=== PATIENT | male | born 1980 | race Caucasian/White ===

== ENCOUNTER 2016-05-09 02:08 | Emergency (ER) | payer BC ==
[~2016-05-09] VITALS: Ht 180.3 cm; Wt 97.1 kg
[2016-05-09 02:11] VITALS: TEMP 36.9; Ht 180.3 cm; Wt 97.1 kg
[2016-05-09] MEDS ORDERED: SODIUM CHLORIDE 0.9% 1000ML 1,000 ML IV STA (02:25)
[2016-05-09 02:44] LABS: BASO % 0.1 %; BASO ABS # 0.01 K/uL (0-0.2); COMPLETE YES; EOS % 0.3 %; IG% 0.3 %; LYMPH % 21.4 %; LYMPH ABS # 1.56 K/uL (1.2-3.4); MEAN CELL VOLUME 84.9 fL (80-100); MEAN CORPUSCULAR HEMOGLOBIN 31.6 pg (25-34); MEAN CORPUSCULAR HGB CONC 37.3 g/dl (32-36); MONO % 7.8 %; NEUT % 70.1 %; PLATELET COUNT 289 K/uL (130-400); RED BLOOD COUNT 4.71 M/uL (4.7-6.1); WHITE BLOOD COUNT 7.28 K/uL (4.8-10.8)
[2016-05-09] MEDS ORDERED: MoRPHine SULFATE 4 MG/ML 1 ML CARP\\VIAL IV STA ×2 (02:45→03:23)
[2016-05-09] MEDS ORDERED: ONDANSETRON INJ 2 MG/ML 2 ML VIAL IV STA (02:45)
[2016-05-09] MEDS ORDERED: KETOROLAC TROMETHAMINE 30 MG/ML VIAL IV STA (02:45)
--- NOTE | 2016-05-09 02:48 | EMERGENCY ROOM VISIT NOTE ---
History First contact with patient: 02:14 Chief Complaint: ABDOMINAL PAIN Stated Complaint: SHARP PAIN ON RIGHT SIDE BELOW RIBS, NAUSEA Nursing Triage Summary: Patient reports right sided abdominal pain that began approximately 3 hours ago. The pain is sharp and constant. Patient reports associated nausea and vomiting. Patient states that the pain is starting to radiate into his back as well. Patient reports hx of kidney stones and reports that this feels similar to previoius kidney stones. History of Present Illness The patient is a 35 year old male who presents to the Emergency Department by private vehicle for evaluation of his RIGHT lower quadrant abdominal pain and flank pain. He reports that his symptoms started approximately 3 hours prior to arrival. He reports waxing waning pain in the affected areas. He denies any radiation into his groin or testicle. The patient rates his current discomfort as an 8/10. He denies any fevers, chills, chest pain, palpitations, short of breath, dizziness, lightheadedness, urinary frequency, hematuria, or dysuria. He does report a significant past medical history of kidney stones and reports that this feels somewhat similar. He denies a previous abdominal surgeries. The patient does report associated nausea and vomiting with pain. Review of Systems A complete 10-point Review of Systems was discussed with the patient, with pertinent positives and negatives listed in the History of Present Illness. All remaining Review of Systems questions can be considered negative unless otherwise specified. Social History Smoking Status: Never Smoker Smokeless Tobacco Use: No Drug Use: none Current/Historical Medications Scheduled PRN Oxycodone Ir (Roxicodone Ir), 1-2 TAB PO Q4H PRN for Pain Allergies Coded Allergies: No Known Allergies (Unverified , 05/09/16) Physical Exam Vital Signs Date Time Temp Pulse Resp B/P Pulse Ox O2 Delivery O2 Flow Rate FiO2 05/09/16 04:14 90 20 125/85 96 05/09/16 02:11 36.9 95 16 148/98 95 Room Air Pain Rating (0-10): 8 Physical Exam VITAL SIGNS - Vital signs and nursing notes were reviewed. GENERAL - 35-year-old male appearing his stated age who is in no acute distress. Communicates well with provider and answers questions appropriately. LUNGS - Chest wall symmetric without accessory muscle use, intercostals retractions, or central cyanosis. Normal vesicular breath sounds CTA B/L. No wheezes, rales, or rhonchi appreciated. CARDIAC - RRR with S1/S2. No murmur, rubs, or gallops appreciated. ABDOMEN - Abdominal contour obese and without pulsations or visible masses. BS normoactive all four quadrants. No tenderness to palpation appreciated throughout. No guarding. No Rebound Tenderness. Negative Rovsing's. Negative Lovell's. No palpable masses, hepatosplenomegaly, or ascites noted. No CVA tenderness to percussion. PSYCH - A&Ox3 and cooperates fully with examiner. Pt is very pleasant and interacts well with examiner. Medical Decision & Procedures ER Provider Diagnostic Interpretation: Radiological imaging and reports were reviewed by myself. Radiologist's Interpretation per [facility] as follows: CT ABDOMEN & PELVIS: 7 mm calculus at the right ureteropelvic junction causes mild hydronephrosis. 5 mm mid zone right intrarenal stone. Hepatic steatosis. Normal appendix. Small fatty right inguinal hernia. Disc degeneration and Schmorl's node deformities at multiple thoracolumbar levels are advanced for age. Resulting lumbar kyphosis at L1-2. Suspect Scheuermann's disease. Laboratory Results 05/09/16 02:30 Red Blood Count 4.71, Mean Corpuscular Volume 84.9, Mean Corpuscular Hemoglobin 31.6, Mean Corpuscular Hemoglobin Concent 37.3, Mean Platelet Volume 9.0, Neutrophils (%) (Auto) 70.1, Lymphocytes (%) (Auto) 21.4, Monocytes (%) (Auto) 7.8, Eosinophils (%) (Auto) 0.3, Basophils (%) (Auto) 0.1, Neutrophils # (Auto) 5.10, Lymphocytes # (Auto) 1.56, Monocytes # (Auto) 0.57, Eosinophils # (Auto) 0.02, Basophils # (Auto) 0.01 05/09/16 02:30 Test 05/09/16 02:30 White Blood Count 7.28 K/uL (4.8-10.8) Red Blood Count 4.71 M/uL (4.7-6.1) Hemoglobin 14.9 g/dL (14.0-18.0) Hematocrit 40.0 % (42-52) Mean Corpuscular Volume 84.9 fL (80-100) Mean Corpuscular Hemoglobin 31.6 pg (25-34) Mean Corpuscular Hemoglobin Concent 37.3 g/dl (32-36) Platelet Count 289 K/uL (130-400) Mean Platelet Volume 9.0 fL (7.4-10.4) Neutrophils (%) (Auto) 70.1 % Lymphocytes (%) (Auto) 21.4 % Monocytes (%) (Auto) 7.8 % Eosinophils (%) (Auto) 0.3 % Basophils (%) (Auto) 0.1 % Neutrophils # (Auto) 5.10 K/uL (1.4-6.5) Lymphocytes # (Auto) 1.56 K/uL (1.2-3.4) Monocytes # (Auto) 0.57 K/uL (0.11-0.59) Eosinophils # (Auto) 0.02 K/uL (0-0.5) Basophils # (Auto) 0.01 K/uL (0-0.2) RDW Standard Deviation 39.6 fL (36.4-46.3) RDW Coefficient of Variation 12.8 % (11.5-14.5) Immature Granulocyte % (Auto) 0.3 % Immature Granulocyte # (Auto) 0.02 K/uL (0.00-0.02) Urine Color YELLOW Urine Appearance CLEAR (CLEAR) Urine pH 5.5 (4.5-7.5) Urine Specific [place] 1.011 (1.000-1.030) Urine Protein NEG (NEG) Urine Glucose (UA) NEG (NEG) Urine Ketones NEG (NEG) Urine Occult Blood 2+ (NEG) Urine Nitrite NEG (NEG) Urine Bilirubin NEG (NEG) Urine Urobilinogen NEG (NEG) Urine Leukocyte Esterase NEG (NEG) Urine WBC (Auto) 1-5 /hpf (0-5) Urine RBC (Auto) 5-10 /hpf (0-4) Urine Hyaline Casts (Auto) 1-5 /lpf (0-5) Urine Epithelial Cells (Auto) 0-5 /lpf (0-5) Urine Bacteria (Auto) NEG (NEG) Anion Gap 9.0 mmol/L (3-11) Est Creatinine Clear Calc Drug Dose 124.8 ml/min Estimated GFR () 114.1 Estimated GFR (Non- 98.5 BUN/Creatinine Ratio 11.1 (10-20) Calcium Level 8.9 mg/dl (8.5-10.1) Magnesium Level 1.8 mg/dl (1.8-2.4) Total Bilirubin 1.5 mg/dl (0.2-1) Aspartate Amino Transf (AST/SGOT) 34 U/L (15-37) Alanine Aminotransferase (ALT/SGPT) 73 U/L (12-78) Alkaline Phosphatase 70 U/L (45-117) Total Protein 8.1 gm/dl (6.4-8.2) Albumin 4.4 gm/dl (3.4-5.0) Globulin 3.7 gm/dl (2.5-4.0) Albumin/Globulin Ratio 1.2 (0.9-2) Lipase 155 U/L (73-393) Medications Administered Medications (Trade) Dose Ordered Sig/Huyen Route Start Time Stop Time Status Last Admin Dose Admin Sodium Chloride (Nss 1000ml) 1,000 ml @ 999 mls/hr Q1H1M STAT IV 05/09/16 02:25 05/09/16 03:25 DC 05/09/16 02:40 999 MLS/HR Morphine Sulfate (MoRPHine SULFATE INJ) 4 mg NOW STAT IV 05/09/16 02:45 05/09/16 02:47 DC 05/09/16 03:08 4 MG Ondansetron HCl (Zofran Inj) 4 mg NOW STAT IV 05/09/16 02:45 05/09/16 02:47 DC 05/09/16 03:07 4 MG Ketorolac Tromethamine (Toradol Inj) 30 mg NOW STAT IV 05/09/16 02:45 05/09/16 02:47 DC 05/09/16 03:07 30 MG Morphine Sulfate (MoRPHine SULFATE INJ) 4 mg NOW STAT IV 05/09/16 03:23 05/09/16 03:24 DC 05/09/16 03:33 4 MG Oxycodone HCl (Roxicodone Immediate Rel 5MG Home Pack) 1 homepack UD ONCE PO 05/09/16 04:15 05/09/16 04:16 DC 05/09/16 04:13 1 HOMEPACK ED Course Patient was seen and evaluate by myself. Labs were drawn, saline lock in place. The patient was hydrated with 1000 mL normal saline bolus. The patient received 4 mg morphine, 4 mg Zofran, and 30 g Toradol intravenously for pain. CT of the abdomen and pelvis without IV contrast was ordered. Laboratory results demonstrate no acute leukocytosis, worrisome anemia, or bandemia. The patient has no significant electrolyte abnormalities. Patient was reevaluated after CT scanning educated on today's labs and imaging studies. He complains of persistent pain. He was treated with an additional formerly grams morphine for pain. The patient was reevaluated and reports feeling no pain at this time. He was offered admission for pain control which she declines. He would rather be discharged home which she has had success with in the past. Patient was provided OxyIR for break through pain at home. He will follow-up with urology from today's visit. He will return for any changing or worsening symptoms. Patient discharged home afebrile and in good condition. Medical Decision Given the patient's presentation and exam findings, I did elect to perform the above-mentioned workup. The patient presents today with RIGHT-sided flank pain. He has no fever leukocytosis. He has no abdominal tenderness to palpation. CT consistent with 7 mm proximal stone. The patient's pain was adequately controlled the emergency department. He declines offer for admission for pain control. He'll follow-up with urology in the outpatient setting. He will be provided pain medication for breakthrough pain at home. He was educated on worrisome symptoms for return visit to the emergency department. Patient discharged home afebrile and in good condition. In the evaluation and treatment of this patient, the following differential diagnoses were considered: Appendicitis, Diverticulitis, Diverticulosis, Colitis , Ischemic Colitis, Inflammatory Bowel Disease, Irritable Bowel Disease, Testicular Torsion, Kidney Stone, Pyelonephritis, Hydronephrosis, Cholecystitis , Ascending Cholangitis, Choledocholithiasis, GERD. Impression Primary Impression: Ureterolithiasis Departure Information Dispostion Home / Self-Care Condition GOOD Prescriptions Oxycodone Ir (Roxicodone Ir) 5 Mg Tab 1-2 TAB PO Q4H Y for Pain, #20 TAB For Initial Treatment Prov: Amando Rudd PA-C 05/09/16 Referrals No Doctor, Assigned (PCP) Wilfrido Keller M.D. Patient Instructions Kidney Stones - [facility], [facility] Additional Instructions You have been treated in the Emergency Department today for a Kidney Stone ( Nephrolithiasis). You have received pain medicine in the emergency department which impairs your ability to operate a vehicle. It is illegal for you to drive after receiving these medicines. You have been prescribed OxyIR to be used for pain control. This is a narcotic medication. You cannot drive or consume alcohol while on this medicine. This medicine should only be used for pain that cannot be controlled with over-the- counter pain medicines. For pain control, you can use the following [id number] medicines (if >12 yo): - Regular strength (325mg/tab) Tylenol (acetaminophen) 2 tabs every 4-6 hours as needed. Do not exceed 12 tablets in a 24 hour period. Avoid taking more than 4 grams (4000 mg) of Tylenol per day. This includes any other sources of acetaminophen you may take on a regular basis. - Regular strength (200 mg/tab) Advil (ibuprofen) 1-2 tabs every 4-6 hours as needed. Do not exceed a dose of 3200 mg per day. You have been provided a strainer and specimen collection cup. You should strain your urine to collect any passed stones. Your stones can be placed into the specimen cup and taken to your Urologist for further evaluation. You have been provided the contact information for the on-call Urologist. You should contact the Urologist's office tomorrow to establish a follow-up appointment from today's Emergency Department visit. Return to the Emergency Department if your symptoms persist despite the treatment plan outlined above or if you develop the following symptoms: intractable pain, fever, chills, or large amounts of blood in your urine.
[2016-05-09 02:49] LABS: URINE APPEARANCE CLEAR (CLEAR); URINE BILIRUBIN NEG (NEG); URINE COLOR YELLOW; URINE EPITHELIAL CELL AUTO 0-5 /lpf (0-5); URINE NITRITE NEG (NEG); URINE PH 5.5 (4.5-7.5); URINE SPECIFIC GRAVITY 1.011 (1.000-1.030); UROBILINOGEN NEG (NEG); ZZUR CULT IF INDIC CLEAN CATCH NO
[2016-05-09 02:58] LABS: MANUAL MICROSCOPIC REQUIRED? NO; REVIEW REQ? NO
[2016-05-09 03:04] LABS: BUN/CREATININE RATIO 11.1 (10-20); CALCIUM 8.9 mg/dl (8.5-10.1); MAGNESIUM 1.8 mg/dl (1.8-2.4); POTASSIUM 3.8 mmol/L (3.5-5.1)
[2016-05-09 03:06] LABS: ALB/GLOB RATIO 1.2 (0.9-2)
[2016-05-09] MEDS ORDERED: OXYC1TAB3 PO (04:03)
[2016-05-09 04:14] VITALS: BP 125/85; PULSE 90; O2SAT 96
[2016-05-09] MEDS ORDERED: OXYCODONE IR HOME PACK PO ONE (04:15)
--- NOTE | 2016-05-09 07:46 | DIAGNOSTIC IMAGING REPORT ---
CT SCAN OF THE ABDOMEN AND PELVIS WITHOUT IV CONTRAST CLINICAL HISTORY: Right flank pain. COMPARISON STUDY: No priors. TECHNIQUE: CT scan of the abdomen and pelvis is performed from the lung bases to the proximal femora. Images are reviewed in the axial, sagittal, and coronal planes. IV contrast was not administered for this examination as per the referring clinician. Automated dose control exposure was utilized. CT DOSE: 1258.03 mGy.cm FINDINGS: Lung bases: The heart is normal in size and without pericardial effusion. A punctate calcified granuloma is noted at the right lung base. The lung bases are otherwise clear noting dependent atelectasis. Liver: The unenhanced liver is enlarged, measuring 21.5 cm in length. The liver demonstrates diffusely diminished attenuation consistent with hepatic steatosis. Fatty sparing is seen adjacent to gallbladder fossa. There is no intrahepatic biliary ductal dilatation. Gallbladder: Unremarkable. Spleen: Normal in size and attenuation. Pancreas: Unremarkable. Adrenal glands: Unremarkable. Kidneys: The unenhanced kidneys are normal in size. There is a 9 mm obstructing calculus in the proximal right ureter just below the ureteropelvic junction seen on axial image #205. This causes moderate right-sided hydronephrosis and is located at the level of L1-L2. There is associated right-sided perinephric stranding. There are at least 2 additional nonobstructing right renal calculi measuring up to 6 mm. No left renal calculi are identified and there is no left-sided hydronephrosis. There is no evidence of contour deforming renal mass lesion. Abdominal vasculature: The abdominal aorta is normal in course and caliber. Bowel: The small bowel and colon are normal in course and caliber. The appendix is well-visualized and normal. Peritoneum: There is no intraperitoneal free air or abdominal ascites. There is a small fat-containing umbilical hernia. Lymphadenopathy: None. Pelvic viscera: The bladder, prostate, and seminal vesicles are normal as visualized. There is a small fat-containing right inguinal hernia. Skeletal structures: No lytic or blastic lesions are seen. There is straightening of the lumbar lordosis with mild reversal centered at L1-L2. Multiple Schmorl's nodes are noted. There is a limbus vertebra at L4. IMPRESSION: 1. There is a 9 mm obstructing calculus in the proximal right ureter just below the ureteropelvic junction. 2. At least 2 additional nonobstructing calculi are seen in the right kidney. 3. No left renal calculi are identified. 4. Hepatomegaly and hepatic steatosis. Electronically signed by: Max Merchant M.D. 05/09/2016 7:45 AM Dictated Date/Time: 05/09/2016 7:38 AM
[2016-05-14] MEDS ORDERED: TAMS0.4C38 PO (14:00)
[2016-05-15] MEDS ORDERED: OXYC-57 PO (10:34)
== END 2016-05-09 04:16 | disposition home or self-care (01) ==
LOC: C.EDB 02:10
DX: N20.1 Calculus of ureter (principal)

== ENCOUNTER → 2016-05-12 | Outpatient (CLI) | payer BC ==
[~2016-05-12] MED LIST: OXYC-57 PO; OXYC1TAB3 PO; TAMS0.4C38 PO
== END | disposition home or self-care (01) ==
LOC: C.LABSPEC 16:54
PROVIDERS: ATTEND Urology
DX: N20.0 Calculus of kidney (principal)

== ENCOUNTER → 2016-05-14 | Outpatient (CLI) | payer BC ==
--- NOTE | 2016-05-14 18:18 | DIAGNOSTIC IMAGING REPORT ---
KUB CLINICAL HISTORY: Nephrolithiasis RIGHT FLANK PAIN COMPARISON STUDY: CT scan dated 05/09/2016 FINDINGS: There is no pathologic bowel dilatation. There is an 8 mm proximal right ureteral calculus. As a 2.5 mm calculus within the midpole the right kidney. No right renal calculi are visualized. IMPRESSION: 1. 8 mm proximal right ureteral calculus 2. 2.5 mm mid pole right renal calculus. Electronically signed by: Boris Landeros M.D. 05/14/2016 6:17 PM Dictated Date/Time: 05/14/2016 6:15 PM
== END | disposition home or self-care (01) ==
LOC: C.RAD 17:56
PROVIDERS: ATTEND Urology
DX: N20.0 Calculus of kidney (principal)

== ENCOUNTER → 2016-05-15 | Day surgery (SDC) | payer BC ==
[2016-05-14 14:00] VITALS: Ht 180.3 cm; Wt 90.9 kg
[~2016-05-15] VITALS: Ht 180.3 cm; Wt 90.9 kg
[~2016-05-15] MED LIST changes: +ATROPINE SULFATE 0.1 MG/ML 5ML SYR IV PRN; +CIPROFLOXACIN / D5W 400 MG IV SCH; +DEXAMETHASONE SOD INJ 4 MG/ML VIAL ONE; +EpHEDrine SULFATE INJ 50 MG/ML AMP IV PRN; +FENTANYL CITRATE INJ 50 MCG/1 ML 2 ML VIAL IV PRN; +FENTANYL CITRATE INJ 50 MCG/1 ML 2 ML VIAL ONE; +LACTATED RINGER'S 1000ML 1,000 ML IV SCH; +LIDOCAINE HCL 2% 2 ML VIAL (20MG/ML) ONE; +MIDAZOLAM HCL 1 MG/ML 2ML VIAL ONE; +ONDANSETRON INJ 2 MG/ML 2 ML VIAL ONE; +OXYCODONE/ACETAMINOPHEN 5-325 TAB PO PRN; +PROPOFOL IV EMULSION 10 MG/ML 20 ML VIAL IV ONE
--- NOTE | 2016-05-15 09:45 | History & Physical Bridge Note ---
H&P Re-Evaluation Bridge Note: I have examined the patient, reviewed the History & Physical and in the interval since the performance of the History & Physical I have noted the following changes of clinical significance: No changes noted
--- NOTE | 2016-05-15 10:33 | [facility] Post Operative Brief Note ---
Immediate Operative Summary Operative Date May 15, 2016. Pre-Operative Diagnosis right ureteral stone Post-Operative Diagnosis same Procedure(s) Performed right eswl Surgeon mckenzie Cam Specialist Surgeon(s) none Estimated Blood Loss none Findings right upj stone Specimens none
--- NOTE | 2016-05-15 10:35 | Discharge Instructions-SurgCtr ---
Discharge Instructions Date of Service May 15, 2016. Visit Reason for Visit: Stones Discharge Discharge Diagnosis / Problem: STONE Discharge Goals Goal(s): Therapeutic intervention Activity Recommendations Activity Limitations: resume your previous activity (TAKE IT EASY TODAY) Anesthesia MEDICATIONS: Resume previous medications unless instructed otherwise by your surgeon. Resume pre-ESWL medication except for aspirin, coumadin or other blood thinners. __ Toradol 10 mg every 6 hours for initial pain. __ Lortab 5 mg 1-2 every 4 hours for pain. _X_ Percocet 5 mg 1-2 every 4 hours for pain. __ Macrodantin 50 mg x 3 a day. __ Flomax 1 tab daily one half (1/2) hour after supper. SPECIAL CARE INSTRUCTIONS: 1. Get KUB (x-ray) _X_ day before or day of office visit and bring x-ray to office __ get x-ray 2 days before and tell office you are getting x-rays when you call for the appointment. 2. Strain ALL urine. 3. Please call if you have a fever, chills, severe pain, or constant dribbling of urine. 4. Office phone number . FOLLOW UP VISIT: Please call the office to schedule a follow-up appointment at .. Post Anesthesia Instructions: If you have had General Anesthesia or IV Sedation: * Do not drive today. * Resume driving when surgeon permits. * Do not make important decisions or sign legal documents today. * Call surgeon for: 1. Temperature elevations greater than 101 degrees F. 2. Uncontrollable pain. 3. Excessive bleeding. 4. Persistent nausea and vomiting. 5. Medication intolerance (nausea, vomiting or rash). * For nausea and vomiting use only clear liquids such as: tea, soda, bouillon until nausea subsides, then gradually increase diet as tolerated. * If you have any concerns or questions, call your surgeon's office. If physician is unavailable and it is an emergency, call 911 or go to the nearest emergency room. . Diet Recommendations Home Diet: resume previous diet Procedures Procedures Performed: right eswl Pending Studies Studies pending at discharge: no Medical Emergencies . Who to Call and When: Medical Emergencies: If at any time you feel your situation is an emergency, please call 911 immediately. . Non-Emergent Contact Non-Emergency issues call your: Urologist . . "Provider Documentation" section prepared by Elmo Calloway. [facility] Monitoring Program Search Results: patient reviewed within database
[2016-05-15 11:48] VITALS: TEMP 36.8
[2016-05-15 12:10] VITALS: BP 133/89; PULSE 83; O2SAT 98
--- NOTE | 2016-05-15 12:17 | Anesthesia Progress Nt - [facility] ---
Anesthesia Post Op Note Date & Time May 15, 2016 at 12:17 Vital Signs Pain Intensity: 6.0 Vital Signs Past 12 Hours Date Time Temp Pulse Resp B/P Pulse Ox O2 Delivery O2 Flow Rate FiO2 05/15/16 12:10 83 16 133/89 98 Room Air 05/15/16 11:48 36.8 78 16 123/85 98 Room Air 05/15/16 11:40 130/84 05/15/16 11:38 82 14 05/15/16 11:38 83 14 94 05/15/16 11:37 86 19 95 05/15/16 11:37 86 19 05/15/16 11:36 80 13 05/15/16 11:36 79 13 98 05/15/16 11:35 133/88 05/15/16 11:34 37.0 97 Room Air 05/15/16 11:31 82 18 95 05/15/16 11:31 84 18 05/15/16 11:30 131/81 05/15/16 11:26 89 16 97 05/15/16 11:26 87 16 05/15/16 11:25 143/91 05/15/16 11:23 88 19 99 05/15/16 11:23 89 19 05/15/16 11:20 130/85 05/15/16 11:18 86 17 05/15/16 11:18 87 17 100 05/15/16 11:15 141/80 05/15/16 11:13 83 17 05/15/16 11:13 85 17 99 05/15/16 11:10 131/91 05/15/16 11:08 36.2 81 18 138/45 98 Room Air 05/15/16 11:08 81 138/85 98 05/15/16 11:08 81 05/15/16 08:59 36.7 92 20 156/103 96 Room Air 155/101 Notes Mental Status: alert / awake / arousable, participated in evaluation Pt Amnestic to Procedure: Yes Nausea / Vomiting: adequately controlled Pain: adequately controlled Airway Patency, RR, SpO2: stable & adequate BP & HR: stable & adequate Hydration State: stable & adequate Anesthetic Complications: no major complications apparent
--- NOTE | 2016-05-21 09:33 | OPERATIVE REPORT ---
DATE OF OPERATION: 05/15/2016 PREOPERATIVE DIAGNOSIS: Right ureteral stone. POSTOPERATIVE DIAGNOSIS: Same. PROCEDURE: Extracorporeal shockwave lithotripsy. FINDINGS: KUB showed stone right ureter bundle. SURGEON: Dr. Calloway. ANESTHESIA: General. DRAINS: None. COMPLICATIONS: None. SPECIMENS: None. INDICATIONS: The patient is a 35-year-old white male with a right ureteral stone being brought in for ESWL. DETAILS OF PROCEDURE: The patient was brought to the litho suite. He was correctly identified and the stone was visualized on his most recent x-rays. After the correct time out was performed the patient was positioned over the therapy head. An adequate level of anesthesia was administered. The extracorporeal shockwave lithotripsy treatment was then commenced. Please see the [place] [facility] Management sheet for complete treatment summary. After completion of the procedure the patient was taken to the recovery room in stable condition. I attest to the content of the Intraoperative Record and any orders documented therein. Any exceptio ns are noted below.
== END | disposition home or self-care (01) ==
LOC: X.SURG 08:33
PROVIDERS: ATTEND Urology
DX: N20.1 Calculus of ureter (principal); N13.8 Other obstructive and reflux uropathy; Z87.442 Personal history of urinary calculi

== ENCOUNTER → 2016-05-21 | Outpatient (CLI) | payer BC ==
[~2016-05-21] MED LIST changes: -ATROPINE SULFATE 0.1 MG/ML 5ML SYR IV PRN; -CIPROFLOXACIN / D5W 400 MG IV SCH; -DEXAMETHASONE SOD INJ 4 MG/ML VIAL ONE; -EpHEDrine SULFATE INJ 50 MG/ML AMP IV PRN; -FENTANYL CITRATE INJ 50 MCG/1 ML 2 ML VIAL IV PRN; -FENTANYL CITRATE INJ 50 MCG/1 ML 2 ML VIAL ONE; -LACTATED RINGER'S 1000ML 1,000 ML IV SCH; -LIDOCAINE HCL 2% 2 ML VIAL (20MG/ML) ONE; -MIDAZOLAM HCL 1 MG/ML 2ML VIAL ONE; -ONDANSETRON INJ 2 MG/ML 2 ML VIAL ONE; -OXYCODONE/ACETAMINOPHEN 5-325 TAB PO PRN; -PROPOFOL IV EMULSION 10 MG/ML 20 ML VIAL IV ONE
--- NOTE | 2016-05-21 08:50 | DIAGNOSTIC IMAGING REPORT ---
KUB CLINICAL HISTORY: N20.0 Nephrolithiasis nephrocalcinosis COMPARISON STUDY: 05/14/2016 FINDINGS: There are several mid to lower pole right renal calcifications. Calcification of the proximal right ureter as it traveled approximately 1 cm to a somewhat lower position of the proximal right ureter. IMPRESSION: Right nephrocalcinosis. Proximal right ureteral calculus 1 cm distal as compared to the position on the prior study Electronically signed by: Jeremiah Gruber M.D. 05/21/2016 8:49 AM Dictated Date/Time: 05/21/2016 8:43 AM
== END | disposition home or self-care (01) ==
LOC: C.RAD 08:18
PROVIDERS: ATTEND Urology
DX: N20.0 Calculus of kidney (principal); E83.59 Other disorders of calcium metabolism; N29 Other disorders of kidney and ureter in diseases classified elsewhere

== ENCOUNTER → 2016-06-04 | Outpatient (CLI) | payer BC ==
--- NOTE | 2016-06-04 09:03 | DIAGNOSTIC IMAGING REPORT ---
KUB CLINICAL HISTORY: Nephrolithiasis. FINDINGS: 2 AP supine abdominal radiographs are compared to study dated 05/21/2016 and correlated with abdominal CT dated 05/09/2016. There is a nonobstructed abdominal bowel gas pattern noting moderate colonic fecal retention. There are 2 calcifications projecting over the right mid ureter between the transverse processes of L3 and L4. These measure 7 mm and 4 mm. At least 2 additional nonobstructing calculi project over the right kidney and measure up to 5 mm. No calcifications are seen projecting over the left kidney or along the course of the left ureter. The bony structures appear intact. IMPRESSION: 1. There are least 2 calculi projecting over the mid right ureter measuring up to 7 mm as detailed above. These likely represent fragments from the larger left ureteral stone seen on 05/21/2016. 2. Additional nonobstructing calculi project over the right kidney. 3. No left renal calculi are seen. Electronically signed by: Max Merchant M.D. 06/04/2016 9:02 AM Dictated Date/Time: 06/04/2016 9:00 AM
== END | disposition home or self-care (01) ==
LOC: C.RAD 08:05
PROVIDERS: ATTEND Urology
DX: N20.0 Calculus of kidney (principal)

== ENCOUNTER → 2016-06-04 | Outpatient (CLI) | payer BC | END | disposition home or self-care (01) | LOC: C.LABSPEC 17:22 | PROVIDERS: ATTEND Nurse Practitioner Family | DX: N20.0 Calculus of kidney (principal) ==

== ENCOUNTER → 2016-06-05 | Outpatient (CLI) | payer BC ==
[2016-06-05 11:12] LABS: BASO % 0.2 %; BASO ABS # 0.01 K/uL (0-0.2); COMPLETE YES; EOS % 0.6 %; HEMATOCRIT 42.5 % (42-52); IG% 0.2 %; LYMPH % 34.2 %; LYMPH ABS # 2.18 K/uL (1.2-3.4); MEAN CELL VOLUME 84.7 fL (80-100); MEAN CORPUSCULAR HEMOGLOBIN 30.1 pg (25-34); MEAN CORPUSCULAR HGB CONC 35.5 g/dl (32-36); MEAN PLATELET VOLUME 9.1 fL (7.4-10.4); MONO % 10.2 %; NEUT % 54.6 %; PLATELET COUNT 345 K/uL (130-400); RED BLOOD COUNT 5.02 M/uL (4.7-6.1); WHITE BLOOD COUNT 6.37 K/uL (4.8-10.8)
[2016-06-05 11:45] LABS: BLOOD UREA NITROGEN 11 mg/dl (7-18); BUN/CREATININE RATIO 10.6 (10-20); CALCIUM 9.1 mg/dl (8.5-10.1); CARBON DIOXIDE 29 mmol/L (21-32); CHLORIDE 102 mmol/L (98-107); GLUCOSE 97 mg/dl (70-99); POTASSIUM 3.9 mmol/L (3.5-5.1); SODIUM 138 mmol/L (136-145)
== END | disposition home or self-care (01) ==
LOC: C.LABBC 08:19
PROVIDERS: ATTEND Nurse Practitioner Family
DX: N20.0 Calculus of kidney (principal)

== ENCOUNTER → 2016-06-11 | Outpatient (CLI) | payer BC ==
[~2016-06-11] MED LIST changes: -OXYC-57 PO
--- NOTE | 2016-06-11 17:22 | DIAGNOSTIC IMAGING REPORT ---
KUB CLINICAL HISTORY: Nephrolithiasis COMPARISON STUDY: 06/04/2016 FINDINGS: There is a 5 mm mid pole right renal calculus. The previously identified proximal right ureteral calculi are not visualized on the current study. IMPRESSION: 1. Right-sided nephrolithiasis 2. The previously described proximal right ureteral calculi are not visualized on the current study 3. No evidence of pathologic bowel dilatation Electronically signed by: Boris Landeros M.D. 06/11/2016 5:19 PM Dictated Date/Time: 06/11/2016 5:18 PM
== END | disposition home or self-care (01) ==
LOC: C.RAD 16:46
PROVIDERS: ATTEND Nurse Practitioner Family
DX: N20.0 Calculus of kidney (principal)

== ENCOUNTER → 2016-06-12 | Day surgery (SDC) | payer BC ==
[2016-06-05 09:00] VITALS: Ht 180.3 cm; Wt 90.9 kg
[~2016-06-12] VITALS: Ht 180.3 cm; Wt 90.9 kg
[~2016-06-12] MED LIST changes: +ACETAMINOPHEN 325 MG TAB PO PRN; +ATROPINE SULFATE 0.1 MG/ML 5ML SYR IV PRN; +CIPROFLOXACIN 400MG / D5W IV SCH; +DEXAMETHASONE SOD INJ 4 MG/ML VIAL ONE; +EpHEDrine SULFATE INJ 50 MG/ML AMP IV PRN; +FENTANYL CITRATE INJ 50 MCG/1 ML 2 ML VIAL IV PRN; +FENTANYL CITRATE INJ 50 MCG/1 ML 2 ML VIAL ONE; +LACTATED RINGER'S 1000ML 1,000 ML IV SCH; +LIDOCAINE HCL 2% 2 ML VIAL (20MG/ML) ONE; +MIDAZOLAM HCL 1 MG/ML 2ML VIAL ONE; +ONDANSETRON INJ 2 MG/ML 2 ML VIAL IV PRN; +ONDANSETRON INJ 2 MG/ML 2 ML VIAL ONE; +OXYCODONE/ACETAMINOPHEN 5-325 TAB ONE; +OXYCODONE/ACETAMINOPHEN 5-325 TAB PO PRN; +PROPOFOL IV EMULSION 10 MG/ML 20 ML VIAL IV ONE; +SODIUM CHLORIDE 0.9% 1000ML 1,000 ML IV SCH
--- NOTE | 2016-06-12 10:04 | Discharge Instructions-SurgCtr ---
Discharge Instructions Date of Service Jun 12, 2016. Visit Reason for Visit: Right Ureteral Stone Discharge Discharge Diagnosis / Problem: stone Discharge Goals Goal(s): Decrease discomfort, Improve function, Increase independence, Improve disease control Medications Stopped Medications Name(s): Was told not to take any ASA products. Activity Recommendations Activity Limitations: resume your previous activity Lifting Limitations: none Exercise/Sports Limitations: none May Resume Sexual Activity: when tolerated Shower/Bathe: no limitations Driving or Machine Use: no limitations (as long as you aren't taking pain medications) Anesthesia . Post Anesthesia Instructions: If you have had General Anesthesia or IV Sedation: * Do not drive today. * Resume driving when surgeon permits. * Do not make important decisions or sign legal documents today. * Call surgeon for: 1. Temperature elevations greater than 101 degrees F. 2. Uncontrollable pain. 3. Excessive bleeding. 4. Persistent nausea and vomiting. 5. Medication intolerance (nausea, vomiting or rash). * For nausea and vomiting use only clear liquids such as: tea, soda, bouillon until nausea subsides, then gradually increase diet as tolerated. * If you have any concerns or questions, call your surgeon's office. If physician is unavailable and it is an emergency, call 911 or go to the nearest emergency room. . Diet Recommendations Home Diet: no limitations Pending Studies Studies pending at discharge: no Medical Emergencies . Who to Call and When: Medical Emergencies: If at any time you feel your situation is an emergency, please call 911 immediately. . Non-Emergent Contact Non-Emergency issues call your: Urologist Call Non-Emergent contact if: you have a fever, temperature is above 101.5, your pain is not controlled, your pain is worsening, your pain is unusual for you . . "Provider Documentation" section prepared by Ketan Castillo.
--- NOTE | 2016-06-12 10:08 | [facility] Post Operative Brief Note ---
Immediate Operative Summary Operative Date Jun 12, 2016. Pre-Operative Diagnosis right nephrolithiasis Post-Operative Diagnosis right nephrolithiasis Procedure(s) Performed Right ESWL Surgeon Raquel Quinones MD Cardiovascular Technologist Surgeon(s) none Estimated Blood Loss none Findings R renal stone. The previously seen stone in the right ureter (actually two stones), seem to have passed. Not present on K[facility] nor visible in the OR. We subsequently turned our attention to the previously untreated stone in the right kidney. Drains none Anesthesia gen Complication(s) None Disposition Recovery Room / PACU (stable)
--- NOTE | 2016-06-12 11:01 | Anesthesia Progress Nt - [facility] ---
Anesthesia Post Op Note Date & Time Jun 12, 2016 at 11:00 Vital Signs Pain Intensity: 0 Vital Signs Past 12 Hours Date Time Temp Pulse Resp B/P Pulse Ox O2 Delivery O2 Flow Rate FiO2 06/12/16 10:40 36.4 83 20 122/78 99 Mask 6 06/12/16 07:39 36.9 86 16 141/99 95 Room Air Notes Mental Status: alert / awake / arousable, participated in evaluation Pt Amnestic to Procedure: Yes Nausea / Vomiting: adequately controlled Pain: adequately controlled Airway Patency, RR, SpO2: stable & adequate BP & HR: stable & adequate Hydration State: stable & adequate Anesthetic Complications: no major complications apparent
[2016-06-12 11:39] VITALS: BP 139/93; PULSE 83; O2SAT 98
--- NOTE | 2016-06-12 13:34 | OPERATIVE REPORT ---
DATE OF OPERATION: 06/12/2016 PREOPERATIVE DIAGNOSIS: Right renal calculus. POSTOPERATIVE DIAGNOSIS: Right renal calculus. PROCEDURE PERFORMED: Right extracorporal shockwave lithotripsy. SURGEON: Dr. Quinonse. ANESTHESIA: General. ESTIMATED BLOOD LOSS: 0. DESCRIPTION OF THE PROCEDURE: Jono Garcia was identified in the preoperative holding area. Appropriate informed consents were reviewed and completed and the patient was transported to the operating suite where he received appropriate general anesthesia and antibiotics in the form of Cipro. His stone was localized under fluoroscopy and a total of 2500 shocks were delivered to the stone with good fragmentation. Further details can be found on the [place] Kidney Stone Management Information Sheet. At the conclusion of the case, he was extubated and taken to the PACU in stable condition. There were no complications. I attest to the content of the Intraoperative Record and any orders documented therein. Any exceptio ns are noted below.
== END | disposition home or self-care (01) ==
LOC: X.SURG 07:29
PROVIDERS: ATTEND Urology
DX: N20.0 Calculus of kidney (principal); Z87.442 Personal history of urinary calculi

== ENCOUNTER → 2016-06-22 | Outpatient (CLI) | payer BC ==
[~2016-06-22] MED LIST changes: -ACETAMINOPHEN 325 MG TAB PO PRN; -ATROPINE SULFATE 0.1 MG/ML 5ML SYR IV PRN; -CIPROFLOXACIN 400MG / D5W IV SCH; -DEXAMETHASONE SOD INJ 4 MG/ML VIAL ONE; -EpHEDrine SULFATE INJ 50 MG/ML AMP IV PRN; -FENTANYL CITRATE INJ 50 MCG/1 ML 2 ML VIAL IV PRN; -FENTANYL CITRATE INJ 50 MCG/1 ML 2 ML VIAL ONE; -LACTATED RINGER'S 1000ML 1,000 ML IV SCH; -LIDOCAINE HCL 2% 2 ML VIAL (20MG/ML) ONE; -MIDAZOLAM HCL 1 MG/ML 2ML VIAL ONE; -ONDANSETRON INJ 2 MG/ML 2 ML VIAL IV PRN; -ONDANSETRON INJ 2 MG/ML 2 ML VIAL ONE; -OXYCODONE/ACETAMINOPHEN 5-325 TAB ONE; -OXYCODONE/ACETAMINOPHEN 5-325 TAB PO PRN; -PROPOFOL IV EMULSION 10 MG/ML 20 ML VIAL IV ONE; -SODIUM CHLORIDE 0.9% 1000ML 1,000 ML IV SCH
--- NOTE | 2016-06-22 17:55 | DIAGNOSTIC IMAGING REPORT ---
[facility] CLINICAL HISTORY: N20.0 Nephrolithiasis COMPARISON STUDY: 06/11/2016 FINDINGS: There is no pathologic bowel dilatation. 2 calcifications project over the lower pole the right kidney the largest of which measures 2.5 mm. These are consistent with calculi. There is a nonspecific 4 mm right pelvic basin calcification. A distal ureteral calculus cannot be excluded. IMPRESSION: 1. No evidence of pathologic bowel dilatation 2. Right-sided nephrolithiasis 3. 4 mm right pelvic basin calcification. A distal ureteral calculus cannot be excluded. Electronically signed by: Boris Landeros M.D. 06/22/2016 5:53 PM Dictated Date/Time: 06/22/2016 5:51 PM
== END | disposition home or self-care (01) ==
LOC: C.RAD 17:34
PROVIDERS: ATTEND Nurse Practitioner Family
DX: N20.0 Calculus of kidney (principal)

== ENCOUNTER → 2016-09-18 | Outpatient (CLI) | payer BC ==
--- NOTE | 2016-09-18 13:03 | DIAGNOSTIC IMAGING REPORT ---
[facility] CLINICAL HISTORY: N20.0 [id number] Ureteric [id number] COMPARISON STUDY: 06/22/2016 FINDINGS: The bowel gas pattern is unremarkable. No renal calculi are visualized. There are 2 right pelvic basin calcifications suspicious for distal right ureteral calculi. These measure 6 mm, and 4 mm respectively. IMPRESSION: There are 2 pelvic basin calcifications suspicious for distal right ureteral calculi. These measure 4 mm and 6 mm respectively.. Electronically signed by: Boris Landeros M.D. 09/18/2016 1:02 PM Dictated Date/Time: 09/18/2016 1:00 PM
== END | disposition home or self-care (01) ==
LOC: C.RAD 12:31
PROVIDERS: ATTEND Urology
DX: N20.0 Calculus of kidney (principal); N20.1 Calculus of ureter; R31.9 Hematuria, unspecified

== ENCOUNTER → 2016-09-30 | Outpatient (CLI) | payer BC | END | disposition home or self-care (01) | LOC: C.LABSPEC 17:02 | PROVIDERS: ATTEND Urology | DX: N20.0 Calculus of kidney (principal) ==

== ENCOUNTER → 2017-10-11 | Outpatient (CLI) | payer OTHER ==
[~2017-10-11] MED LIST changes: -OXYC1TAB3 PO
--- NOTE | 2017-10-11 16:22 | DIAGNOSTIC IMAGING REPORT ---
[facility] CLINICAL HISTORY: N20.0 Nephrolithiasis nephrocalcinosis COMPARISON STUDY: 09/18/2016 FINDINGS: Nonobstructive bowel pattern. No significant renal calcifications. Calcifications previously described in the right lateral soft tissue pelvis are no longer present. There is a mild fecal impaction. IMPRESSION: 1. No evidence for nephrocalcinosis. 2. Calcifications previously described at the right soft tissue pelvis are no longer present. 3. Mild fecal impaction. The above report was generated using voice recognition software. It may contain grammatical, syntax or spelling errors. Electronically signed by: Jeremiah Gruber M.D. 10/11/2017 4:20 PM Dictated Date/Time: 10/11/2017 4:19 PM
== END | disposition home or self-care (01) ==
LOC: C.RAD 15:43
PROVIDERS: ATTEND Urology
DX: N20.0 Calculus of kidney (principal)